=== PATIENT | male | born 1995 | race African-American/Black ===

== ENCOUNTER 2017-08-21 01:54 | Emergency (ER) | payer SELFPAY ==
[~2017-08-21] VITALS: Ht 175.3 cm; Wt 62.6 kg
[2017-08-21 01:57] VITALS: Ht 175.3 cm; Wt 62.6 kg
[2017-08-21 02:08] VITALS: BP 128/74
== END 2017-08-21 02:08 | disposition home or self-care (01) ==
LOC: ED 01:54
DX: K08.89 Other specified disorders of teeth and supporting structures (principal); J45.909 Unspecified asthma, uncomplicated

== ENCOUNTER 2017-08-21 06:51 | Emergency (ER) | payer SELFPAY | END 2017-08-21 07:07 | disposition left against medical advice (07) | LOC: ED 06:51 | DX: Z53.21 Procedure and treatment not carried out due to patient leaving prior to being seen by health care provider (principal) ==